=== PATIENT | male | born 1940 | race Caucasian/White ===

== ENCOUNTER 2017-09-12 20:04 | Inpatient (IN) | payer MEDICARE, MEDICAID ==
[~2017-09-12] VITALS: Ht 177.8 cm; Wt 107.5 kg
[~2017-09-12 20:04] MED LIST: ASPIRIN 32325 MG/TAB PO; CELEXA 20MG20 MG/TAB PO; COREG 25MG25 MG/TAB PO; DETROL 2MG TAB2 MG PO; LEVEMIR SQ; LOTRIMIN1% TP; NOVLOG SQ; PLAVIX 75MG TAB75 MG PO; PRILOSEC 20MG20 MG PO; RENVELA800 MG PO; SYNTHROID0.05 MG/TA PO; TEMOVATE0.05% TP; ZETIA 10MG TAB10 MG PO
[2017-09-12 22:10] VITALS: BP 126/68; PULSE 93; TEMP 99.6
[2017-09-12 22:11] VITALS: BP 126/68; PULSE 93; TEMP 99.6
[2017-09-12] MEDS ORDERED: NORVASC 5MG5 MG/TAB PO (22:27)
[2017-09-12] MEDS ORDERED: BASAGLAR K100 UNIT/1 SQ (22:29)
[2017-09-12] MEDS ORDERED: HUMALOG PEN100 U/ML SQ (22:29)
[2017-09-12] MEDS ORDERED: PREVACID 30MG30 M1 PO (22:30)
[2017-09-13] VITALS (415 sets, daily range): BP systolic 76–157; BP diastolic 40–85; PULSE 68–89; TEMP 97.3–98.8; O2SAT 70–100
[2017-09-13 06:24] LABS: MEAN CELL VOLUME 102 fl (80.0-100.0); MEAN CORPUSCULAR HGB CONC 32 g/dl (33.0-37.0); MEAN PLATELET VOLUME 9.5 fl (7.4-10.4); PLATELET COUNT 211 K/mm3 (130-400); RED BLOOD COUNT 2.94 M/mm3 (4.20-5.60); WHITE BLOOD COUNT 12.6 K/mm3 (4.8-10.8)
[2017-09-13 06:29] LABS: ADD PATHOLOGY DIFF REVIEW NO; HEMATOCRIT 29.9 % (42.0-52.0); HEMOGLOBIN 9.6 g/dl (13.5-18.0); MEAN CORPUSCULAR HEMOGLOBIN 33 pg (27.0-31.0)
[2017-09-13 06:41] LABS: CALCIUM 9.2 mg/dL (8.4-10.2); POTASSIUM 3.3 mmol/L (3.4-5.0)
[2017-09-13 06:45] LABS: CREATININE, serum 8.15 mg/dL (0.66-1.25)
[2017-09-13 07:13] LABS: BAND 14 % (0-10); EOSINOPHIL 6 % (0-4); LYMPHOCYTE 13 % (20.0-51.0); NEUTROPHILS 61 % (42.0-75.2); PLATELET ESTIMATE NORMAL (NORMAL); TOTAL CELLS COUNTED 100
[2017-09-13 07:14] LABS: TOXIC GRANULATION PRESENT
[2017-09-13 09:29] LABS: ARTERIAL BLD GAS O2 SATURATION 98.8 % (92-100); ARTERIAL BLD GAS TCO2 CT 24.2; ARTERIAL BLOOD GAS BASE EXCESS -1.1 (-2-2); ARTERIAL BLOOD GAS HCO3 23.1 meq/L (22-26); ARTERIAL BLOOD GAS PHT 7.42 C (7.35-7.45); ARTERIAL BLOOD GAS PO2 219.2 mmHg (80-100); ARTERIAL BLOOD GAS PO2T 219.2 (80-100); ARTERIAL BLOOD GAS pH 7.42 (7.35-7.45); ATS? YES; OXYHEMOGLOBIN 98.1 %
[2017-09-13 11:56] LABS: VENOUS BLOOD GAS BE 3.3 (-4-4)
[2017-09-13 11:57] LABS: VENOUS BLOOD GAS SITE VENIPUNCTURE
[2017-09-13 12:04] LABS: MEAN CELL VOLUME 102 fl (80.0-100.0); MEAN CORPUSCULAR HGB CONC 33 g/dl (33.0-37.0); MEAN PLATELET VOLUME 9.4 fl (7.4-10.4); PLATELET COUNT 190 K/mm3 (130-400); RED BLOOD COUNT 2.55 M/mm3 (4.20-5.60); WHITE BLOOD COUNT 9.7 K/mm3 (4.8-10.8)
[2017-09-13 12:05] LABS: ADD PATHOLOGY DIFF REVIEW NO; HEMATOCRIT 26.1 % (42.0-52.0); HEMOGLOBIN 8.5 g/dl (13.5-18.0); MEAN CORPUSCULAR HEMOGLOBIN 33 pg (27.0-31.0)
[2017-09-13 12:11] LABS: ADJUSTED CALCIUM 9.6 mg/dL (8.4-10.2); ALANINE AMINOTRANSFERASE 28 U/L (21-72); ALBUMIN 3.3 gm/dL (3.5-5.0); ALKALINE PHOSPHATASE 76 U/L (50-136); ANION GAP 10 mmol/L (7-16); BILIRUBIN,TOTAL 0.5 mg/dL (0.0-1.0); BLOOD UREA NITROGEN 47 mg/dL (9-20); CARBON DIOXIDE 29 mmol/L (22-30); CHLORIDE 98 mmol/L (98-107); GLUCOSE 191 mg/dL (74-106); POTASSIUM 3.6 mmol/L (3.4-5.0); SODIUM 136 mmol/L (137-145); TOTAL PROTEIN 6.5 gm/dL (6.4-8.2)
[2017-09-13 12:14] LABS: CREATININE, serum 5.83 mg/dL (0.66-1.25); SALICYLATE < 1.0 mg/dL
[2017-09-13 12:16] LABS: INR 1.3 (0.8-3.0); PROTHROMBIN TIME 14.8 SECONDS (9.7-12.8)
[2017-09-13 12:32] LABS: TROPONIN-I 0.088 ng/mL (0.000-0.034)
[2017-09-13 12:42] LABS: BAND 13 % (0-10); EOSINOPHIL 4 % (0-4); LYMPHOCYTE 8 % (20.0-51.0); NEUTROPHILS 73 % (42.0-75.2); PLATELET ESTIMATE NORMAL (NORMAL); TOTAL CELLS COUNTED 100
[2017-09-13 12:43] LABS: HYPOCHROMIA 1+
[2017-09-14] VITALS (690 sets, daily range): BP systolic 93–140; BP diastolic 48–76; PULSE 72–79; TEMP 97.9–99; O2SAT 53–100
[2017-09-14 05:51] LABS: MEAN CELL VOLUME 103 fl (80.0-100.0); MEAN CORPUSCULAR HGB CONC 33 g/dl (33.0-37.0); MEAN PLATELET VOLUME 9.4 fl (7.4-10.4); PLATELET COUNT 202 K/mm3 (130-400); RED BLOOD COUNT 2.63 M/mm3 (4.20-5.60); WHITE BLOOD COUNT 9.5 K/mm3 (4.8-10.8)
[2017-09-14 05:53] LABS: ADJUSTED CALCIUM 9.1 mg/dL (8.4-10.2); ALBUMIN 3.6 gm/dL (3.5-5.0); BILIRUBIN,TOTAL 0.4 mg/dL (0.0-1.0); CALCIUM 8.8 mg/dL (8.4-10.2); POTASSIUM 3.6 mmol/L (3.4-5.0); TOTAL PROTEIN 6.7 gm/dL (6.4-8.2)
[2017-09-14 05:54] LABS: ADD PATHOLOGY DIFF REVIEW NO; HEMOGLOBIN 8.8 g/dl (13.5-18.0); MEAN CORPUSCULAR HEMOGLOBIN 33 pg (27.0-31.0)
[2017-09-14 06:01] LABS: CREATININE, serum 7.18 mg/dL (0.66-1.25)
[2017-09-14 06:02] LABS: INR 1.2 (0.8-3.0); PROTHROMBIN TIME 13.7 SECONDS (9.7-12.8)
[2017-09-14 06:09] LABS: BAND 1 % (0-10); LYMPHOCYTE 9 % (20.0-51.0); NEUTROPHILS 87 % (42.0-75.2); TOTAL CELLS COUNTED 100
[2017-09-14 06:10] LABS: ANISOCYTOSIS 2+; HYPOCHROMIA 2+; MICROCYTOSIS 2+; POLYCHROMASIA 1+
[2017-09-14] MEDS ORDERED: RENVELA800 MG PO (09:31)
[2017-09-14 09:38] LABS: ERYTHROCYTE SEDIMENTATION RATE > 140 mm/hr (0-30)
[2017-09-14 09:45] LABS: C-REACTIVE PROTEIN 18.9 mg/dL (0.0-0.9)
[2017-09-14 20:45] LABS: PH 6 (5-8); SQUAMOUS EPITHELIAL 0-2 /hpf; URINE APPEARANCE Clear; URINE BACTERIA Rare /hpf; URINE BILIRUBIN Negative (NEGATIVE); URINE BLOOD 2+ (NEGATIVE); URINE COLOR Yellow; URINE GLUCOSE 3+ (NEGATIVE); URINE KETONE Negative (NEGATIVE); URINE LEUKOCYTE ESTERASE Negative (NEGATIVE); URINE PROTEIN(semi-quant) 2+ (NEGATIVE); URINE RBC >50 /hpf; URINE UROBILINOGEN Negative (NEGATIVE)
[2017-09-14 20:47] LABS: COLLECTION METHOD CLEAN CATCH
[2017-09-15] VITALS (7 sets, daily range): BP systolic 115–169; BP diastolic 62–90; PULSE 71–97; TEMP 97.3–98.8
[2017-09-15 06:53] LABS: ADD PATHOLOGY DIFF REVIEW NO; HEMATOCRIT 26.8 % (42.0-52.0); HEMOGLOBIN 8.9 g/dl (13.5-18.0); MEAN CELL VOLUME 101 fl (80.0-100.0); MEAN CORPUSCULAR HEMOGLOBIN 33 pg (27.0-31.0); MEAN CORPUSCULAR HGB CONC 33 g/dl (33.0-37.0); MEAN PLATELET VOLUME 9.7 fl (7.4-10.4); PLATELET COUNT 216 K/mm3 (130-400); RED BLOOD COUNT 2.66 M/mm3 (4.20-5.60); WHITE BLOOD COUNT 8.4 K/mm3 (4.8-10.8)
[2017-09-15 06:55] LABS: INR 1.1 (0.8-3.0); PROTHROMBIN TIME 12.6 SECONDS (9.7-12.8)
[2017-09-15 07:08] LABS: ADJUSTED CALCIUM 9.1 mg/dL (8.4-10.2); ALBUMIN 3.5 gm/dL (3.5-5.0); BILIRUBIN,TOTAL 0.4 mg/dL (0.0-1.0); CALCIUM 8.7 mg/dL (8.4-10.2); POTASSIUM 3.5 mmol/L (3.4-5.0); TOTAL PROTEIN 6.5 gm/dL (6.4-8.2)
[2017-09-15 07:10] LABS: CREATININE, serum 8.18 mg/dL (0.66-1.25)
[2017-09-15 07:40] LABS: BAND 8 % (0-10); EOSINOPHIL 1 % (0-4); LYMPHOCYTE 22 % (20.0-51.0); NEUTROPHILS 63 % (42.0-75.2); NUCLEATED RED BLOOD CELL 1 (0-6); PLATELET ESTIMATE NORMAL (NORMAL); TOTAL CELLS COUNTED 100
[2017-09-15 07:41] LABS: HYPOCHROMIA 1+
[2017-09-16 00:43] VITALS: BP 164/79; PULSE 90; TEMP 98.2
[2017-09-16 05:21] VITALS: BP 155/72; PULSE 85; TEMP 97.4
[2017-09-16 07:04] LABS: MEAN CELL VOLUME 100 fl (80.0-100.0); MEAN CORPUSCULAR HGB CONC 33 g/dl (33.0-37.0); MEAN PLATELET VOLUME 9.4 fl (7.4-10.4); PLATELET COUNT 213 K/mm3 (130-400); RED BLOOD COUNT 2.51 M/mm3 (4.20-5.60)
[2017-09-16 07:09] LABS: ADD PATHOLOGY DIFF REVIEW NO; ALBUMIN 3.4 gm/dL (3.5-5.0); BILIRUBIN,TOTAL 0.4 mg/dL (0.0-1.0); CALCIUM 8.5 mg/dL (8.4-10.2); HEMATOCRIT 25.2 % (42.0-52.0); HEMOGLOBIN 8.3 g/dl (13.5-18.0); INR 1.1 (0.8-3.0); MEAN CORPUSCULAR HEMOGLOBIN 33 pg (27.0-31.0); POTASSIUM 4.2 mmol/L (3.4-5.0); PROTHROMBIN TIME 12.7 SECONDS (9.7-12.8); TOTAL PROTEIN 6.3 gm/dL (6.4-8.2)
[2017-09-16 07:15] LABS: CREATININE, serum 9.26 mg/dL (0.66-1.25)
[2017-09-16 07:38] LABS: BAND 6 % (0-10); EOSINOPHIL 3 % (0-4); LYMPHOCYTE 14 % (20.0-51.0); METAMYELOCYTE 1 % (0-0); NEUTROPHILS 74 % (42.0-75.2); TOTAL CELLS COUNTED 100
[2017-09-16 07:39] LABS: HYPOCHROMIA 1+
[2017-09-16] MEDS ORDERED: HEPARIN LOCK FLU5 M1 IV (14:26)
[2017-09-16] MEDS ORDERED: NS INT FLUSH 1010 ML IV (14:27)
[2017-09-16] MEDS ORDERED: TOPROL XL 50MG50 MG PO (14:38)
[2017-09-16] MEDS ORDERED: VANCOCIN HCL1 GM IV (15:41)
[2017-09-16 15:45] VITALS: BP 155/72; PULSE 85; TEMP 97.4
== END 2017-09-16 16:32 | DRG 871 ==
LOC: MEDICAL 20:04 → ICU 22:45 → MEDICAL 22:45 → ICU 09-13 12:35 → MEDICAL 09-14 14:10
PROVIDERS: Internal Medicine; Internal Medicine Nephrology
PROC: 5A1D70Z Performance of Urinary Filtration, Intermittent, Less than 6 Hours Per Day (ICD-10-PCS; principal; 2017-09-13)
DX: A41.01 Sepsis due to Methicillin susceptible Staphylococcus aureus (principal); R65.21 Severe sepsis with septic shock; N18.6 End stage renal disease; L02.213 Cutaneous abscess of chest wall; L02.811 Cutaneous abscess of head [any part, except face]; E87.1 Hypo-osmolality and hyponatremia; I12.0 Hypertensive chronic kidney disease with stage 5 chronic kidney disease or end stage renal disease; L02.611 Cutaneous abscess of right foot; Z66 Do not resuscitate; E11.22 Type 2 diabetes mellitus with diabetic chronic kidney disease; Z99.2 Dependence on renal dialysis; I25.10 Atherosclerotic heart disease of native coronary artery without angina pectoris; Z95.0 Presence of cardiac pacemaker; Z79.4 Long term (current) use of insulin; E87.6 Hypokalemia; Z89.512 Acquired absence of left leg below knee; Z89.421 Acquired absence of other right toe(s); B95.62 Methicillin resistant Staphylococcus aureus infection as the cause of diseases classified elsewhere; E11.621 Type 2 diabetes mellitus with foot ulcer; L97.511 Non-pressure chronic ulcer of other part of right foot limited to breakdown of skin; I95.3 Hypotension of hemodialysis; D63.1 Anemia in chronic kidney disease
CPT/HCPCS: 99223-AI; 99232-AI; 99233-AI; 99239; C1751; C1894; J1644; J1720; J1815; J2543; J3370; J7050; J7060

== ENCOUNTER → 2017-10-02 | Outpatient (REF) ==
[~2017-10-02] MED LIST changes: +BASAGLAR K100 UNIT/1 SQ; +HEPARIN LOCK FLU5 M1 IV; +HUMALOG PEN100 U/ML SQ; +NORVASC 5MG5 MG/TAB PO; +NS INT FLUSH 1010 ML IV; +PREVACID 30MG30 M1 PO; +TOPROL XL 50MG50 MG PO; +VANCOCIN HCL1 GM IV
== END ==
LOC: ZAIV 09-24 06:10
DX: Z09 Encounter for follow-up examination after completed treatment for conditions other than malignant neoplasm (principal)

== ENCOUNTER 2017-11-09 14:31 | Emergency (ER) | payer MEDICARE, MEDICAID ==
[2017-11-09 14:43] VITALS: TEMP 98.5
[2017-11-09 15:22] LABS: BASO # 0.1 (0.0-0.2); BASO % 0.6 % (0.0-2.0); EOS # 0.2 (0.0-0.7); EOS % 2.1 % (0-4.0); GRAN # 6.9 (1.4-6.5); GRAN % 71.4 % (42.2-75.2); HEMATOCRIT 25.5 % (42.0-52.0); HEMOGLOBIN 7.7 g/dl (13.5-18.0); LYMPH # 1.6 (1.2-3.4); LYMPH % 16.1 % (20.0-51.0); MEAN CELL VOLUME 100 fl (80.0-100.0); MEAN CORPUSCULAR HEMOGLOBIN 30 pg (27.0-31.0); MEAN CORPUSCULAR HGB CONC 30 g/dl (33.0-37.0); MEAN PLATELET VOLUME 9.1 fl (7.4-10.4); MONO # 0.9 (0.1-0.6); MONO % 9.1 % (1.7-9.3); PLATELET COUNT 265 K/mm3 (130-400); RED BLOOD COUNT 2.56 M/mm3 (4.20-5.60); REDCELL DISTRIBUTION WIDTH-CV 15.6 % (11.5-14.5)
[2017-11-09 15:33] LABS: ALBUMIN 3.7 gm/dL (3.5-5.0); BILIRUBIN,TOTAL 0.5 mg/dL (0.0-1.0); CALCIUM 8.9 mg/dL (8.4-10.2); POTASSIUM 3.7 mmol/L (3.4-5.0); TOTAL PROTEIN 7.1 gm/dL (6.4-8.2)
[2017-11-09 15:36] LABS: CREATININE, serum 5.61 mg/dL (0.66-1.25)
[2017-11-09 18:32] LABS: COLLECTION METHOD CLEAN CATCH
[2017-11-09 18:39] LABS: PH 7 (5-8); URINE APPEARANCE Clear; URINE BACTERIA None Seen /hpf; URINE BILIRUBIN Negative (NEGATIVE); URINE BLOOD 1+ (NEGATIVE); URINE COLOR Yellow; URINE GLUCOSE 1+ (NEGATIVE); URINE KETONE Negative (NEGATIVE); URINE LEUKOCYTE ESTERASE 1+ (NEGATIVE); URINE NITRATE Negative (NEGATIVE); URINE PROTEIN(semi-quant) 2+ (NEGATIVE); URINE UROBILINOGEN Negative (NEGATIVE); URINE WBC 0-2 /hpf
[2017-11-09 21:02] VITALS: BP 115/79; PULSE 95
== END 2017-11-09 21:02 | disposition home or self-care (01) ==
LOC: COL.ER 14:31
PROVIDERS: Emergency Medicine
DX: R42 Dizziness and giddiness (principal); N18.9 Chronic kidney disease, unspecified; Z99.2 Dependence on renal dialysis; Z89.512 Acquired absence of left leg below knee; Z89.511 Acquired absence of right leg below knee
CPT/HCPCS: J7040